=== PATIENT | male | born 1945 | race Caucasian/White ===

== ENCOUNTER → 2024-02-03 | Day surgery (SDC) | payer MEDICARE, BC ==
[~2024-02-03] VITALS: Ht 177.8 cm; Wt 79.4 kg
[~2024-02-03] MED LIST: ALFU10TA46 PO; ATOR40TA70 PO; BUPIVACAINE HCL/PF 0.5% (5MG/ML) 10ML ONE; DUTA0.5C37 PO; ETOMIDATE 2MG/ML 10ML VIAL IV ONE; EZET10TA81 PO; FENTANYL CITRATE/PF 50MCG/ML 2ML VIAL ONE; GLYCOPYRROLATE 0.2 MG/ML 2ML VIAL ONE; HYDROMORPHONE HCL/PF 1MG/ML INJ IV PRN; LABETALOL 5MG/ML 4ML INJ IV PRN; MEPERIDINE HCL/PF 25MG/ML CPJ IV PRN; MIDAZOLAM HCL 2 MG/2 ML VIAL ONE; MIRA25TA PO; OLME40TA11 PO; ONDANSETRON HCL 4MG/2ML INJ IV PRN; PROPOFOL 200MG/20ML VIAL IV ONE; SKIN ADHESIVE 0.7 GM EA TOP ONE
[2024-02-03] MEDS: LACTATED RINGERS 1,000 ML IV SCH (06:14)
[2024-02-03] MEDS: BUPIVACAINE HCL 0.5% 125 ML in ON-Q PM012 DRUG DELIV DEVICE 1 EA IR SCH (08:29)
[2024-02-03 10:03] VITALS: BP 160/81; PULSE 68; RESP 13
[2024-02-03] MEDS: ACETAMINOPHEN WITH CODEINE 300/30MG TABLET PO PRN (10:03)
== END | disposition home or self-care (01) ==
LOC: OR 05:15
PROVIDERS: ATTEND Surgery
DX: K40.90 Unilateral inguinal hernia, without obstruction or gangrene, not specified as recurrent (principal); I10 Essential (primary) hypertension; I25.10 Atherosclerotic heart disease of native coronary artery without angina pectoris; E78.5 Hyperlipidemia, unspecified; K21.9 Gastro-esophageal reflux disease without esophagitis; N40.0 Benign prostatic hyperplasia without lower urinary tract symptoms; Z79.899 Other long term (current) drug therapy; Z98.890 Other specified postprocedural states
CPT/HCPCS: 49505; 84132; 36415; C1781; J3010; J3490 ×4; J2250; J2704